=== PATIENT | female | born 1960 | race Caucasian/White ===

== ENCOUNTER 2021-11-16 19:01 | Emergency (ER) | payer MEDICARE, OTHER ==
[2021-11-16 19:42] LABS: HEMOGLOBIN 13.9 gm/dl (12.3-15.3); RED BLOOD COUNT 4.56 M/UL (4.00-5.10); WHITE BLOOD COUNT 11.2 K/UL (4.5-11.0)
[2021-11-16] MEDS ORDERED: AEROCHAMBER1 EA XX (23:35)
[2021-11-16] MEDS ORDERED: PROVENTIL HFA6.7 GM INH (23:35)
== END 2021-11-16 23:53 | disposition home or self-care (01) ==
LOC: ER1 19:01
PROVIDERS: Family Medicine
DX: J44.1 Chronic obstructive pulmonary disease with (acute) exacerbation (principal); N28.9 Disorder of kidney and ureter, unspecified; E11.65 Type 2 diabetes mellitus with hyperglycemia; Z79.4 Long term (current) use of insulin; Z88.8 Allergy status to other drugs, medicaments and biological substances
CPT/HCPCS: 71045; 80053; 82550; 82553; 84484; 85025; 93005; 94664; 99285

== ENCOUNTER → 2021-12-17 | Outpatient (CLI) | payer MEDICARE, OTHER ==
[~2021-12-17] MED LIST: AEROCHAMBER1 EA XX; PROVENTIL HFA6.7 GM INH
== END ==
LOC: KOH-I 14:00
DX: R06.02 Shortness of breath (principal); R91.8 Other nonspecific abnormal finding of lung field
CPT/HCPCS: 71046

== ENCOUNTER → 2022-03-12 | Outpatient (CLI) | payer MEDICARE, OTHER | LOC: KOH-I 12:46 | DX: M79.642 Pain in left hand (principal); M19.042 Primary osteoarthritis, left hand; M19.031 Primary osteoarthritis, right wrist; M19.041 Primary osteoarthritis, right hand | CPT/HCPCS: 73100; 73130 ==